=== PATIENT | female | born 1955 | race Caucasian/White ===

== ENCOUNTER → 2017-05-14 | Outpatient (CLI) | payer OTHER ==
[~2017-05-14] MED LIST: ALBUTEROL17 GM INH; AMLODIPINE BESYL5 MG PO; BENZONATATE PO; BYSTOLIC10 MG PO; CIPRO PO; CORTISPORIN-TC10 M1 OT; GABAPENTIN300 MG PO; GLUCOPHAGE500 MG PO; GUAIATUSSIN AC L5 ML PO; K-DUR20 ME1 PO; LEVAQUIN750 M1 PO; LEVOTHROID150 MCG; LEVOTHROID50 MCG PO; LEVOTHYROXINE PO; LEVOTHYROXINE100 MC1 PO; LYRICA75 MG PO; MEDROL4 MG/DOSE- PO; NAPROXEN PO; NORCO PO; NORFLEX100 M1 PO; PHENERGAN VC W120 M1 PO; PHENERGAN W/CODEINE PO; PHENERGAN25 M1 PO; PRINIVIL10 MG PO; PROVERA10 MG PO; TROLAMINE1 ML OT; TYLENOL #3 PO; ZITHROMAX PO; ZOFRAN ODT4 MG PO
--- NOTE | ~2017-05-14 | MY11 ---
[facility]. [facility] A Service of [facility] RADIOLOGY TEXT RESULTS PATIENT: SAMUEL MENDOZA LOCATION: [facility] : 53 UNIT #: [id number] AGE: [address]: Marques Dominguez MD SEX: F ORDER DR: [id number] [address] [address] [id number] O MR#: [id number] Acc #: [id number] NAME: SAMUEL MENDOZA : 1955 SEX: F STUDY DATE/TIME: 05/14/2017 11:59 UNIT: [facility] ROOM: STUDY DESCRIPTION: MY Mammogram Screening Dig Ras Attending Physician: Marques Dominguez M.D. Referring Physician: Marques Dominguez M.D. Ordering Physician: Marques Dominguez M.D. Primary Care Physician: Nevin Calvo M.D. MEDICAL IMAGING REPORT This report is preliminary unless electronic signature is present. EXAM Digital screening mammogram, 05/14/2017 HISTORY 61-year-old woman no risk elevation. Annual screening. COMPARISON 12/14/2006, 03/15/2009, 03/24/2011 FINDINGS Digital imaging of each breast was completed utilizing screening protocol. Review includes FDA-approved CAD device. Breast parenchyma is moderately dense with subareolar duct prominence bilaterally. I see no interval occurring mass. There are no suspicious microcalcifications and no architectural deformity. IMPRESSION Benign mammogram. Annual screening recommended. Patients over the age of 40 are entered into a reminder system with target due date for the next mammogram. A result letter will also be sent to the patient. BIRADS: 2 Benign Finding Dictated by... Rick Anderson M.D. THIS IS AN ELECTRONICALLY VERIFIED REPORT Rick Anderson M.D. at 05/14/2017 3:07 PM Ivory TD: 05/14/2017 14:53 [facility] A Service [facility] RADIOLOGY TEXT RESULTS PATIENT: SAMUEL MENDOZA LOCATION: [facility] : 54 UNIT #: [id number] AGE: [address]: Marques Dominguez MD SEX: F ORDER DR: SONA #: [id number] MEDICAL IMAGING REPORT Page 1 of 1
== END | disposition home or self-care (01) ==
LOC: SMAM 05-11 10:45
DX: Z12.31 Encounter for screening mammogram for malignant neoplasm of breast (principal)
CPT/HCPCS: G0202

== ENCOUNTER → 2017-06-07 | Outpatient (CLI) | payer OTHER ==
--- NOTE | ~2017-06-07 | US98 ---
[facility] A Service of [facility] & [facility] RADIOLOGY TEXT RESULTS PATIENT: SAMUEL MENDOZA LOCATION: [facility] : 54 UNIT #: [id number] AGE: [address]: CLAIRE BEAULIEU SEX: F ORDER DR: [id number] [place] [id number] [facility]. [place], [place] [address] [id number] O MR#: [id number] Acc #: [id number] NAME: SAMUEL MENDOZA. : 1955 SEX: F STUDY DATE/TIME: 06/07/2017 11:19 UNIT: [facility] ROOM: STUDY DESCRIPTION: US Pelvic Non-OB Complete Attending Physician: Claire Beaulieu M.D. Ordering Physician: Claire Beaulieu M.D. Primary Care Physician: Marques Dominguez M.D. MEDICAL IMAGING REPORT This report is preliminary unless electronic signature is present EXAM Pelvic ultrasound. INDICATIONS Abnormal vaginal bleeding. TECHNIQUE Nava-scale, color Doppler and spectral Doppler waveform analysis was performed through the pelvis both transabdominally and transvaginally. FINDINGS Patient's endometrium is markedly abnormal. It is very heterogeneous with irregular borders. It measures up to 1.2 cm in thickness, which is concerning in a woman with postmenopausal vaginal bleeding. Right ovary appears unremarkable with normal color-Doppler flow seen. It is seen only on the transvaginal images. Left ovary contains a cyst measuring up to 2.1 x 1.8 x 1.6 cm and is relatively simple in appearance. IMPRESSION 1. Thickened endometrium measuring up to 1.2 cm, which is also heterogeneous and shows irregular borders. This could reflect endometrial hyperplasia, but certainly its appearance is extremely worrisome in a 61-year-old woman with vaginal bleeding. Possibility of endometrial malignancy cannot be excluded. Gynecologic consultation for consideration for hysteroscopy and/or endometrial biopsy is strongly recommended. 2. This patient has a simple-appearing left ovarian cyst. Followup ultrasound in 1 year is recommended to document continuing stability. Dictated by... Sonia Moeller M.D. THIS IS AN ELECTRONICALLY VERIFIED REPORT [facility] A Service of [facility] & [facility] RADIOLOGY TEXT RESULTS PATIENT: SAMUEL MENDOZA LOCATION: [facility] #: [id number] : 53 UNIT #: [id number] AGE: [address]: CLAIRE BEAULIEU SEX: F ORDER DR: Sonia Moeller M.D. at 06/08/2017 5:35 PM AFF/pc TD: 06/08/2017 10:40 JOB #: [id number] MEDICAL IMAGING REPORT Page 1 of 1 COPY
== END | disposition home or self-care (01) ==
LOC: CWCC 10:50
DX: N95.0 Postmenopausal bleeding (principal); R93.8 Abnormal findings on diagnostic imaging of other specified body structures; N83.292 Other ovarian cyst, left side
CPT/HCPCS: 76830; 76856

== ENCOUNTER → 2017-08-06 | Day surgery (SDC) | payer OTHER ==
--- NOTE | ~2017-08-06 | OR ---
Unit #: [id number] #: [id number] Patient: SAMUEL MENODZA [id number] [address] [address] [id number] O MR#: [id number] NAME: SAMUEL MENDOZA. ROOM: Date of Procedure: 08/06/2017 Admission Date: 08/06/2017 Surgeon: Joaquin Younger M.D. : 1955 Attending Physician: Joaquin Younger M.D. Primary Care Physician: Marques Dominguez M.D. OPERATIVE REPORT PROCEDURE PERFORMED Colonoscopy to cecum. INDICATIONS FOR PROCEDURE A 61-year-old lady, positive for FIT test, undergoing evaluation with colonoscopy. MEDICATIONS Monitored anesthesia. POSTOPERATIVE FINDINGS 1. Normal exam to cecum. 2. Good prep. 3. No polyps, masses, or colitis. PLAN Repeat colonoscopy in 10 years. DESCRIPTION OF PROCEDURE The patient was explained of the procedure risks and benefits along with the risks and benefits of anesthesia. She was brought to the endoscopy room. Propofol anesthesia was given. Rectal exam was done, which was normal. Colonoscope was lubricated, passed up the rectum, advanced under direct vision all the way to the cecum. Cecum was identified by ileocecal valve and appendiceal orifice. Prep was good. No polyps, masses, or colitis was seen. Mucosa was normal and healthy. I retroflexed in the rectum, small hemorrhoids seen. Scope was gently pulled out. She tolerated it well. No major complications were seen. Dictated by... Ashlie Casarez/laura TD: 08/06/2017 15:53 JOB #: [id number] CC: Eamon Modi M.D. Unit #: [id number] #: [id number] Patient: SAMUEL MENDOZA OPERATIVE REPORT Page 1 of 1 X Joaquin Younger MD X PROCEDURE OPERATIVE NOTE
--- NOTE | ~2017-08-06 | EKG ---
PATIENT: SAMUEL MENDOZA UNIT #: [id number] Ventricular Rate: 58 BPM Atrial Rate: 58 BPM P-R Interval: 180 ms QRS Duration: 110 ms Q-T Interval: 462 ms QTC Calculation(Bezet): 453 ms P [place]: 33 degrees Calculated R [place]: -5 degrees Calculated T [place]: -2 degrees Diagnosis Line: Sinus bradycardia Diagnosis Line: Possible Inferior infarct (cited on or before Diagnosis Line: 19-JAN-2014) Diagnosis Line: Borderline ECG Diagnosis Line: When compared with ECG of 29-AUG-2015 10:23, Diagnosis Line: No significant change was found Diagnosis Line: Confirmed by HALI RUCKER MD ([id number]) on 08/07/2017 Diagnosis Line: 3:33:28 PM INTERPRETING MD: ALKA CORREIA
--- NOTE | ~2017-08-06 | HM ---
Unit #: [id number] #: [id number] Patient: SAMUEL MENDOZA [id number] [facility]. [address] [address] [id number] O MR#: [id number] NAME: SAMUEL MENDOZA. : 1955 SEX: F STUDY DATE/TIME: UNIT: OPERATIONS AND MAINTENANCE MANAGER ROOM: STUDY DESCRIPTION: Holter Monitor Attending Physician: Joaquin Younger M.D. Primary Care Physician: Marques Dominguez M.D. CARDIOLOGY REPORT EXAM 24 Hour Holter Monitor DATE APPLIED 08/06/2017 DATE SCANNED 08/11/[address] Younger READ BY Dr. Paige Mendez REASON FOR TEST Frequent pauses. FINDINGS Underlying rhythm is normal sinus rhythm with an average heart rate of 63 beats per minute, minimum heart rate of 37 beats per minute, and a maximum heart rate of 120 beats per minute. The minimum heart rate of 37 beats per minute is noted at 3:46 p.m. The maximum heart rate of 120 beats per minute is noted at 3:47 p.m. The patient had a 3.56 second pause noted at 3:46 p.m. Patient had 23 single multifocal premature ventricular complex noted. Patient had 197 single premature atrial complex noted. Patient had a 3-beat run of SVT with a heart rate of 109 beats per minute. Patient did not record any symptoms. CONCLUSION 1. Underlying rhythm is normal sinus rhythm with an average heart rate of 63 beats per minute, minimum heart rate of 37 beats per minute and a maximum heart of 120 beats per minute. No sustained atrial or ventricular arrhythmias noted. 2. Patient had a significant 3.56 second pause noted at 3:46 p.m. 3. Patient had occasional single premature atrial complex and premature ventricular complex noted. 4. Patient had a 3-beat run of SVT noted at a heart rate of 106 beats per minute. 5. Patient did not record any symptoms. 6. Very abnormal 24 hour Holter report with 3.56 second pause noted. Unit #: [id number] #: [id number] Patient: SAMUEL MENDOZA Dictated by..Ashlie Kang TD: 08/13/2017 06:28 JOB #: [id number] CARDIOLOGY REPORT Page 1 of 1 X Paige Mendez MD HOLTER MONITOR REPORT
--- NOTE | ~2017-08-06 | CO ---
Unit #: [id number] #: [id number] Patient: SAMUEL MENDOZA [id number] [address] [place], [place] [address] [id number] O MR#: [id number] NAME: SAMUEL MENDOZA ROOM: Age: 61 Sex: F Admission Date: 08/06/2017 : 1955 Attending Physician: Joaquin Younger M.D. Primary Care Physician: Marques Dominguez M.D. Consultation Date: 08/06/2017 CONSULTATION REPORT REASON FOR CONSULTATION Sinus pauses. HISTORY OF PRESENT ILLNESS This is a 61-year-old white female, who is admitted for colonoscopy, where she had a positive Cologuard screening. Her colonoscopy was normal. During the procedure, the patient was noted to have several pauses. The first pause was 3.4 seconds followed by two pauses of 3 seconds. The last pause was prolonged at 4.4 seconds. The patient was on propofol. She has been seen in the recovery phase, where she is drowsy, but has no complaints of chest pain, palpitations, or dizziness. She denies a history of sleep apnea, however, the who is at bedside states that the patient snores quite a lot at home. She has prior history of a syncopal episode, where she felt like she blacked out, but did not actually fall to the ground. She was at work, standing, drinking a Pepsi and then she felt like she had blacked out. When she came to her soft drink that was spilled on the floor. Her only cardiac testing was a stress test 2 years ago, which she was told was normal. Echocardiogram in 2014 showed no significant valve disease and normal left ventricular systolic function. She states she is very active and has no episodes of chest pain. PAST MEDICAL HISTORY 1. 2D echocardiogram on 05/22/2015 showed an ejection fraction equal to greater than 55% with trace mitral regurgitation and trace tricuspid regurgitation. 2. Hypertension. 3. Hypothyroidism. 4. Stress test 2 years ago, told normal, no details available. 5. Nonsmoker. PAST SURGICAL HISTORY 1. Tubal ligation. 2. Tonsillectomy. 3. D and C. SOCIAL HISTORY The patient is . She has never smoked. She denies a history of illicit drug or alcohol use. FAMILY HISTORY Mother had heart disease. Unit #: [id number] #: [id number] Patient: SAMUEL MENDOZA ALLERGIES No known drug allergies. HOME MEDICATIONS Glucophage 500 mg daily, amlodipine 5 mg daily, levothyroxine 100 mcg q.h.s., Lyrica 75 mg b.i.d., Provera 10 mg daily. REVIEW OF SYSTEMS Ten-point review of system is negative except details stated in HPI. PHYSICAL EXAMINATION VITAL SIGNS: Blood pressure 143/68, heart rate 58. GENERAL: This is a well-developed 61-year-old white female, who is in no acute distress. NEUROLOGIC: She is awake, alert, and oriented. There are no focal weaknesses. NECK: Trachea is midline. No thyromegaly or lymphadenopathy. No jugular venous distention. HEART: S1 and S2. Heart sounds are normal. No murmurs. No rubs or clicks. Regular rate and rhythm. LUNGS: Clear without rales, rhonchi, or wheeze. ABDOMEN: Soft and nontender with bowel sounds are present. EXTREMITIES: Without leg edema. DIAGNOSTIC STUDIES LABORATORY RESULTS: Hemoglobin 13.2, hematocrit 39.9, platelet count 210, white count 9.0. Sodium 139, potassium 3.5, BUN 10, creatinine 0.9, glucose 112, magnesium 1.9. Troponin less than 0.03. TSH 1.48. CARDIOVASCULAR STUDIES: EKG; sinus bradycardia rate of 58 beats per minute with nonspecific ST wave abnormalities. IMPRESSION 1. Status post colonoscopy normal. 2. Periods of sinus arrest, questionable secondary to obstructive sleep apnea. 3. Rule out sick sinus syndrome. 4. Diabetes mellitus, type 2. 5. History of syncope. PLAN 1. Cardiology was asked to see the patient in endoscopy recovery for sinus pauses. The patient had a longest pauses up to 4.4 seconds during anesthesia. She is currently sinus rhythm on the monitor with no pauses or high-grade AV block. She may have sick sinus syndrome. Her troponin is negative with no acute EKG changes. She denies chest pain. We will place the patient on a Holter monitor prior to discharge. She may need a permanent pacemaker. This has been discussed with the patient. 2. TSH is normal. 3. The patient can be discharged home today. We will follow up pending the results of the Holter monitor. Thank you for allowing us to assist with this patient's care. Dictated by... Yosi Lazar A.P.R.N. for Abiodun Huntley M.D. [facility]/laura Unit #: [id number] #: [id number] Patient: SAMUEL MENDOZA TD: 08/09/2017 19:18 JOB #: [id number] CONSULTATION REPORT Page 1 of 1 X Yosi Lazar APRN X CONSULTATION REPORT
[2017-08-06 13:16] LABS: BASOPHIL# 0.1 X10e3 (0-0.3); BASOPHIL% 0.6 % (0-2.5); EOSINOPHIL# 0.3 X10e3 (0-0.7); EOSINOPHIL% 2.8 % (0.0-7.0); HEMATOCRIT 39.9 % (35.0-45.0); HEMOGLOBIN 13.2 gm/dL (12.0-16.0); LYMPHOCYTE% 22.4 % (17.0-45.0); MEAN CELL VOLUME 92.1 FL (83-96); MEAN CORPUSCULAR HEMOGLOBIN 30.5 PG (28-34); MEAN CORPUSCULAR HGB CONC 33.1 g/dL (30-36); MEAN PLATELET VOLUME 8.3 FL (6.5-11.5); MONOCYTE# 0.6 X10e3 (0-1.0); MONOCYTE% 6.8 % (3.0-12.0); NEUTROPHIL# 6.1 X10e3 (1.5-7.1); NEUTROPHIL% 67.4 % (40-75); PLATELET COUNT 210 X10e3 (140-420); RED BLOOD COUNT 4.34 X10e (3.90-5.30); RED CELL DISTRIBUTION WIDTH 14.2 % (11.0-15.5)
[2017-08-06 13:23] LABS: DIFF IND NO
[2017-08-06 14:06] LABS: BUN/CREATININE RATIO 11.11; CALCIUM SERUM 9.5 mg/dL (8.4-10.2); CREATININE SERUM 0.9 mg/dL (0.6-1.4); GLOM FILT RATE Estimated 68.6 mL/min (>60); MAGNESIUM 1.9 mg/dL (1.6-3.0); POTASSIUM 3.5 mmol/L (3.5-5.1)
== END | disposition home or self-care (01) ==
LOC: COPS 07:49
PROVIDERS: Internal Medicine Cardiovascular Disease
DX: R19.5 Other fecal abnormalities (principal); K64.9 Unspecified hemorrhoids; E03.9 Hypothyroidism, unspecified; R01.1 Cardiac murmur, unspecified; Z79.84 Long term (current) use of oral hypoglycemic drugs; Z79.899 Other long term (current) drug therapy
CPT/HCPCS: 80048; 82947; 83735; 84443; 84484; 85025; 93005; 93225; 93226